=== PATIENT | male | born 2000 | race Caucasian/White ===

== ENCOUNTER 2020-05-17 01:44 | Emergency (ER) | payer OTHER ==
[2020-05-17 02:14] VITALS: BP 147/79; PULSE 92; TEMP 97.8; BMI 32.8
[2020-05-17] MEDS ORDERED: ACETAMINOPHEN 325 MG TABLET (FP) PO ONE (02:35)
[2020-05-17] MEDS ORDERED: ACETAMINOPHEN 325 MG TABLET (FP) ONE (03:05)
== END 2020-05-17 03:59 | disposition home or self-care (01) ==
LOC: JER 01:44
DX: V87.7XXA Person injured in collision between other specified motor vehicles (traffic), initial encounter (principal)
CPT/HCPCS: 99284-25

== ENCOUNTER 2021-08-19 00:10 | Emergency (ER) | payer OTHER ==
[2021-08-19 01:18] VITALS: BP 158/76; PULSE 91; TEMP 98.1; BMI 37.2
[2021-08-19] MEDS ORDERED: diazePAM 5 MG TABLET PO ONE (01:46)
[2021-08-19] MEDS ORDERED: DEXAMETHASONE SOD PHOSPHATE 10 MG/1 ML VIAL IVPUSH ONE (01:46)
[2021-08-19] MEDS ORDERED: KETOROLAC TROMETHAMINE 15 MG/ML VIAL IVPUSH ONE (01:46)
[2021-08-19] MEDS ORDERED: DEXAMETHASONE SOD PHOSPHATE 10 MG/1 ML VIAL ONE (01:49)
[2021-08-19] MEDS ORDERED: diazePAM 5 MG TABLET ONE (01:49)
[2021-08-19] MEDS ORDERED: KETOROLAC TROMETHAMINE 15 MG/ML VIAL ONE (01:49)
== END 2021-08-19 04:02 | disposition home or self-care (01) ==
LOC: JER 00:10
PROC: 3E033GC Introduction of Other Therapeutic Substance into Peripheral Vein, Percutaneous Approach (ICD-10-PCS; principal; 2021-08-19)
DX: M54.2 Cervicalgia (principal); V49.40XA Driver injured in collision with unspecified motor vehicles in traffic accident, initial encounter
CPT/HCPCS: 72125-TC; 99284-25; J1100

== ENCOUNTER 2021-11-29 17:15 | Emergency (ER) | payer OTHER ==
[2021-11-29 17:22] VITALS: BP 143/65; PULSE 79; RESP 18; TEMP 97.8; BMI 33.4
[2021-11-29] MEDS ORDERED: KETOROLAC TROMETHAMINE 30 MG/1 ML VIAL IM ONE (17:52)
[2021-11-29] MEDS ORDERED: KETOROLAC TROMETHAMINE 30 MG/1 ML VIAL ONE (17:58)
== END 2021-11-29 19:16 | disposition home or self-care (01) ==
LOC: JER 17:15 → JERFT 17:15
PROC: 3E0233Z Introduction of Anti-inflammatory into Muscle, Percutaneous Approach (ICD-10-PCS; principal; 2021-11-29)
DX: S69.91XA Unspecified injury of right wrist, hand and finger(s), initial encounter (principal); W22.8XXA Striking against or struck by other objects, initial encounter
CPT/HCPCS: 73110-TC-RT-FY; 73130-TC-RT-FY; 99284-25

== ENCOUNTER 2024-03-08 10:17 | Emergency (ER) | payer OTHER ==
[2024-03-08 10:43] VITALS: BP 127/76; PULSE 82; RESP 17; TEMP 97.9; BMI 31.9
[2024-03-08] MEDS ORDERED: DIPHTH,PERTUSS(ACELL),TET 0.5 ML DISP.SYRIN IM ONE (12:10)
[2024-03-08] MEDS ORDERED: ACETAMINOPHEN 500 MG TABLET (FP) ONE (12:11)
[2024-03-08] MEDS: DIPHTH,PERTUSS(ACELL),TET 0.5 ML DISP.SYRIN IM ONE (12:22)
[2024-03-08] MEDS: ACETAMINOPHEN 500 MG TABLET (FP) PO ONE (12:26)
[2024-03-08] MEDS ORDERED: LIDOCAINE 1%/EPI 1:100000 (20 ML MULTI DOSE VIAL) ONE (12:36)
[2024-03-08] MEDS: LIDOCAINE 1%/EPI 1:100000 (20 ML MULTI DOSE VIAL) INF ONE (12:54)
== END 2024-03-08 18:58 | disposition home or self-care (01) ==
LOC: JERFT 10:17
PROC: 0XQJXZZ Repair Right Hand, External Approach (ICD-10-PCS; principal; 2024-03-08)
PROC: 3E0234Z Introduction of Serum, Toxoid and Vaccine into Muscle, Percutaneous Approach (ICD-10-PCS; 2024-03-08)
DX: S61.411A Laceration without foreign body of right hand, initial encounter (principal); W26.8XXA Contact with other sharp object(s), not elsewhere classified, initial encounter; Z23 Encounter for immunization
CPT/HCPCS: 73130-TC-RT-FY; 90715; 99284-25